=== PATIENT | female | born 2000 | race Two or more races ===

== ENCOUNTER 2024-07-29 14:34 | Emergency (ER) | payer OTHER ==
[~2024-07-29] VITALS: Ht 170.2 cm; Wt 76.5 kg
[2024-07-29 14:40] VITALS: BP 139/99; PULSE 126; RESP 20; TEMP 97.9; O2SAT 10
[2024-07-29] MEDS: SODIUM CHLORIDE 0.9% 1,000 ML IV ONE (15:04)
[2024-07-29] MEDS: ONDANSETRON HCL 4 MG/2 ML VIAL IV ONE ×2 (15:04→15:52)
[2024-07-29 15:15] LABS: Basophils # (auto) 0.1 10 ^3/uL (0-0.2); Basophils % (auto) 0.3 % (0.0-2.0); Eosinophils # (auto) 0 10 ^3/uL (0-0.8); Hematocrit 46.5 % (36.0-46.0); Hemoglobin 15.4 g/dL (12.2-16.2); Lymphocytes # (auto) 1.8 10 ^3/uL (0.4-5.4); Lymphocytes % (auto) 11.2 % (10.0-50.0); Mean Corpuscular Hemoglobin 27.5 pg (28.0-32.0); Mean Corpuscular Hgb Conc. 33.2 g/dL (32.0-36.0); Monocytes # (auto) 1.1 10 ^3/uL (0-1.3); Neutrophils # (auto) 12.8 10 ^3/uL (1.6-8.6); Neutrophils % (auto) 81.5 % (37.0-80.0); Platelet Count (auto) 273 10^3/uL (140-450); Red Blood Cells 5.61 10^6/uL (4.0-5.20); Red Cell Distribution Width 16.2 % (11.8-14.3); White Blood Cell 15.8 10^3/uL (4.4-10.8)
--- NOTE | 2024-07-29 15:27 | ED.PDOC ---
GI ASSESSMENT HPI Comments 23 y/o F, with a history of DM w/insulin dependency, presents with c/o generalized abdominal discomfort, nausea, and vomiting, today. Patient reports on being 7x weeks with her first ([id number]). She reports on having morning sickness episodes and states this feels like that but just has lasted longer than usual. Patient also endorses on additional history of recent marijuana cessation 2x weeks ago, previously was consistent daily extensive use. Patient denies any hematemesis, diarrhea, constipation, urinary symptoms, fever, chills, trauma, dysuria, hematuria, vaginal bleeding, vaginal discharge or other associated symptoms or modifiers at this time. 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 History Family History Family History: Unknown Social History Smoker: Non-Smoker Alcohol: Denies ETOH Use Drugs: Marijuana Lives In: Home All Other Systems: Reviewed and Negative (Comprehensive systems review obtained and negative except for what is stated in the HPI.) Physical Exam General Appearance: No Apparent Distress, Normal HEENT: Normal ENT Inspection, Pharynx Normal, TMs Normal Neck: Full Range of Motion, Non-Tender, Normal, Normal Inspection Respiratory: Chest Non-Tender, Lungs Clear, No Accessory Muscle Use, No Respiratory Distress, Normal Breath Sounds Cardiovascular: No Edema, No JVD, No Murmur, No Gallop, Normal Peripheral Pulses, Regular Rate/Rhythm Breast Exam: Deferred Gastrointestinal: No Organomegaly, Non Tender, No Pulsatile Mass, Normal Bowel Sounds, Soft Genitalia: Deferred Pelvic: Deferred Rectal: Deferred Extremities: No calf tenderness, Normal capillary refill, Normal inspection, Normal range of motion, Non-tender, No pedal edema Musculoskeletal : Apperance: Normal Neurologic: Alert, glass novelty maker II-XII nml as Tested, No Motor Deficits, Normal Affect, Normal Mood, No Sensory Deficits Cerebellar Function: Normal Reflexes: Normal Skin: Dry, Normal Color, Warm Lymphatic: No Adenopathy Was a procedure done? Was a procedure done?: No GI differential Dx Differential Diagnosis: Appendicitis, Complete , Incomplete , Inevitable , Missed , Threatened , Abruptio placentae, Cholangitis, Cholecystitis, Gastritis/PUD, UTI, Electrolyte Imbalance, Food Poisoning, , Parasitic, Viral, Other (gravidarum hyperemesis, cholelithiasis, among others ) X-Ray, Labs, Meds, VS Vital Signs Date Time Temp Pulse Resp B/P (MAP) Pulse Ox O2 Delivery O2 Flow Rate FiO2 07/29/24 14:40 97.9 126 20 139/99 (112) 10 97.9 Lab Test 07/29/24 15:05 07/29/24 14:46 Range/Units White Blood Count 15.8 H 4.4-10.8 10^3/uL Red Blood Count 5.61 H 4.0-5.20 10^6/uL Hemoglobin 15.4 12.2-16.2 g/dL Hematocrit 46.5 H 36.0-46.0 % Mean Corpuscular Volume 83.0 80.0-100.0 fL Mean Corpuscular Hemoglobin 27.5 L 28.0-32.0 pg Mean Corpuscular Hemoglobin Concent 33.2 32.0-36.0 g/dL Red Cell Distribution Width 16.2 H 11.8-14.3 % Platelet Count 273 140-450 10^3/uL Mean Platelet Volume 10.5 6.9-10.8 fL Neutrophils (%) (Auto) 81.5 H 37.0-80.0 % Lymphocytes (%) (Auto) 11.2 10.0-50.0 % Monocytes (%) (Auto) 7.0 0.0-12.0 % Eosinophils (%) (Auto) 0.0 0.0-7.0 % Basophils (%) (Auto) 0.3 0.0-2.0 % Neutrophils # (Auto) 12.8 H 1.6-8.6 10 ^3/uL Lymphocytes # (Auto) 1.8 0.4-5.4 10 ^3/uL Monocytes # (Auto) 1.1 0-1.3 10 ^3/uL Eosinophils # (Auto) 0 0-0.8 10 ^3/uL Basophils # (Auto) 0.1 0-0.2 10 ^3/uL Nucleated Red Blood Cells 0.0 % Sodium Level 138 136-145 mmol/L Potassium Level 3.3 L 3.5-5.1 mmol/L Chloride Level 102 98-107 mmol/L Carbon Dioxide Level 24 20-31 mmol/L Anion Gap 12 5-15 Blood Urea Nitrogen 18 9-23 mg/dL Creatinine 0.84 0.550-1.02 mg/dL Glomerular Filtration Rate Calc 99 >90 mL/min BUN/Creatinine Ratio 21.4 H 10.0-20.0 Serum Glucose 81 74-106 mg/dL Calcium Level 11.0 H 8.7-10.4 mg/dL Total Bilirubin 0.7 0.2-1.0 mg/dL Direct Bilirubin 0.2 <0.3 mg/dL Aspartate Amino Transferase (AST) 13 13-40 U/L Alanine Aminotransferase (ALT) 18 7-40 U/L Alkaline Phosphatase 61 46-116 U/L Total Protein 7.7 5.7-8.2 g/dL Albumin 5.4 H 3.2-4.8 g/dL Lipase 34 12-53 U/L Beta HCG, Quantitative 360101.8 H 1.5-4.2 mIU/mL POC Glucose 113 H 70-106 mg/dl Current Medications Medications (Trade) Dose Ordered Sig/Jason Route Start Time Stop Time Status Last Admin Sodium Chloride 1,000 ml @ 1,000 mls/hr Q1H ONCE IV 07/29/24 15:00 07/29/24 15:59 DC 07/29/24 15:04 Ondansetron HCl (Zofran) 4 mg O ONCE IV 07/29/24 15:00 07/29/24 15:01 DC 07/29/24 15:04 Ondansetron HCl (Zofran) 4 mg ONCE ONCE IV 07/29/24 15:45 07/29/24 15:46 DC 07/29/24 15:52 X-Ray, Labs, Meds, VS Comment 23-year-old female currently approximate seven weeks here today with complaints of generalized abdominal discomfort, nausea, and vomiting. Vital signs stable, afebrile. Physical exam overall unremarkable without any acute findings. Labs overall notable for mild hypokalemia and a mild leukocytosis but otherwise unremarkable for significant acute findings. Normal renal function. No significant electrolyte abnormalities aside from mild hypokalemia. Ultrasound with evidence of viable IUP. I informed the patient of her findings and she stated that she felt significantly improved after receiving Zofran and fluids. Tolerating p.o.. Requesting to go home. Patient to follow up with her OBGYN this week. Patient already taking vitamins. Patient was given strict return precautions for worsening pain, nausea, vomiting, fevers, vaginal bleeding or discharge, dysuria or hematuria, or any other new or concerning symptoms. Patient expressed understanding and was discharged home in stable condition ambulating with a steady gait in no distress. Images Reviewed?: Images reviewed and evaluated by me Time of 1ST Reevaluation: 14:50 Reevaluation 1ST: Improved Time of 2ND Reevaluation: 18:58 Reevaluation 2ND: Resolved Patient Education/Counseling: Diagnosis, Treatment Family Education/Counseling: No Family Present Additional Information Previous medical encounters reviewed: N/A The following tests were ordered, and results were reviewed by me: hepatic panel, CBC, BMP, beta HCG quant, lipase, UA, OB US Additional Information was gathered from interviewing the following independent historians: N/A I reviewed and agreed with the following test results read by other providers: OB US I discussed treatment and results with medical personnel and: Patient Departure 1 Departure Time of Disposition: 19:28 Impression: Primary Impression: First trimester Additional Impression: Nausea and vomiting Disposition: 01 HOME / SELF CARE / HOMELESS Condition: Stable Discharged With: Self Critical Care Note Critical Care Time?: No Stability Stability form required: No Heart Score Heart Score: Heart Score Response (Comments) Value History N/A 0 EKG N/A 0 Age N/A 0 Risk Factors N/A 0 Troponin N/A 0 Total 0 I personally scribed for LALITA PURCELL MD ([email or web address]) on 07/29/24 at 15:27. Electronically submitted by Michael Oro [email or web address]). LALITA PURCELL MD Jul 29, 2024 15:27
[2024-07-29 15:35] LABS: Alanine Aminotransferase 18 U/L (7-40); Alkaline Phosphatase 61 U/L (46-116); Anion Gap 12 (5-15); Aspartate Aminotransferase 13 U/L (13-40); BUN/Creatinine Ratio 21.4 (10.0-20.0); Bilirubin, Direct 0.2 mg/dL (<0.3); Bilirubin, Total 0.7 mg/dL (0.2-1.0); Blood Urea Nitrogen 18 mg/dL (9-23); Carbon Dioxide 24 mmol/L (20-31); Chloride 102 mmol/L (98-107); Glucose 81 mg/dL (74-106); Sodium 138 mmol/L (136-145); Total Protein 7.7 g/dL (5.7-8.2)
[2024-07-29 15:36] LABS: Albumin 5.4 g/dL (3.2-4.8); Potassium 3.3 mmol/L (3.5-5.1)
--- NOTE | 2024-07-29 15:50 | DVH ---
OB ULTRASOUND <14 WEEKS: HISTORY: abd pain, approx 7 wk TECHNIQUE: Multiple real-time grayscale sonographic images of the pelvis with duplex Doppler color fl ow, spectral and M-mode analysis. TRANSDUCERS: Transabdominal COMPARISON: None FINDINGS: The uterus measures 8.9 x 5.9 x 7.3 cm The cervix is not visualized Right ovary measures 3.2 x 1.9 cm with normal Doppler color flow. Left ovary measures 2.3 x 2.2 cm with normal Doppler color flow. IUP single fetus at 7 weeks and 4 days average ultrasound age based on mean crown-rump length of 0.7 2 cm and gestational sac size of 3.3 cm heart rate detected at 151 beats per minute. Yolk sac is present. Amniotic fluid is subjectively within normal limits Almita-gestational space: Unremarkable IMPRESSION: IUP single live fetus 7 weeks and 4 days AUA corresponding to an FAVIO of 03/13/2025. No acute abnormality detected.
== END 2024-07-29 20:09 | disposition home or self-care (01) ==
LOC: ER 14:34
DX: O21.9 Vomiting of pregnancy, unspecified (principal); O26.891 Other specified pregnancy related conditions, first trimester; R10.2 Pelvic and perineal pain; R10.84 Generalized abdominal pain; O99.321 Drug use complicating pregnancy, first trimester; F12.90 Cannabis use, unspecified, uncomplicated; Z3A.01 Less than 8 weeks gestation of pregnancy
CPT/HCPCS: 36415; 76801; 80048; 80076; 82947; 83690; 84702; 85025; 96361; 96374; 96376; 99285; J2405; J7030; 82962